=== PATIENT | male | born 1985 | race Caucasian/White ===

== ENCOUNTER 2021-07-23 09:07 | Observation (INO) | payer BC, OTHER ==
[2021-07-23 09:38] LABS: #Eosinphils 0.1 thou/uL (0.0-0.7); #Lymphocytes 1.8 thou/uL (1.20-3.40); #Monocytes 0.8 thou/uL (0.11-0.59); #Neutrophils 5.9 thou/uL (1.40-6.50); %Basophils 0.4 % (0.0-1.0); %Eosinophils 1.5 % (0.0-10.0); %Lymphocytes 21.2 % (21.0-51.0); %Monocytes 9.4 % (0.0-10.0); %Neutrophils 67.5 % (42.0-75.0); Hemoglobin 18.3 g/dL (14.0-18.0); Mean Corpuscular HGB CONC 33.1 g/dL (32.0-36.0); Mean Corpuscular Hemoglobin 31.2 pg (27.0-31.0); Mean Corpuscular Volume 94.2 fL (78.0-98.0); Mean Platelet Volume 8.6 fL (7.4-10.4); Platelet Count 217 thou/uL (130-400); RBC Distribution Width 12.3 % (11.5-14.5); Red Blood Cell (RBC) Count 5.87 mill/uL (4.70-6.10); White Blood Cell (WBC) Count 8.7 thou/uL (4.8-10.8)
[2021-07-23] MEDS ORDERED: Iopamidol-370 76% 500 ML 1 ML ONE (09:56)
[2021-07-23 09:58] LABS: ALT (SGPT) 67 U/L (8-55); AST (SGOT) 33 U/L (5-34); Albumin 4.5 g/dL (3.5-5.0); Alkaline Phosphatase 77 U/L (40-110); Anion Gap 15 mmol/L (10-20); BUN (Urea Nitrogen) 13 mg/dL (8.9-20.6); Bilirubin, Total 1.1 mg/dL (0.2-1.2); Calc. Creatinine Clearance 0 mL/min (70-130); Carbon Dioxide 24 mmol/L (22-29); Chloride 101 mmol/L (98-107); Globulin 3.9 g/dL (2.4-3.5); Glucose 301 mg/dL (70-105); Lipase 20 U/L (8-78); Potassium 3.9 mmol/L (3.5-5.1); Protein, Total 8.4 g/dL (6.0-8.3); Sodium 136 mmol/L (136-145)
[2021-07-23] MEDS ORDERED: Dextrose 5% in Water 1,000 ML IV PRN (11:38)
[2021-07-23] MEDS ORDERED: Acetaminophen 325 MG TAB PO PRN (11:38)
[2021-07-23] MEDS ORDERED: Acetaminophen 650 MG Suppository PR PRN (11:38)
[2021-07-23] MEDS ORDERED: Calcium Carbonate 500 MG ChewTAB PO PRN (11:38)
[2021-07-23] MEDS ORDERED: Dextrose 50% Abboject 50 ML SYRINGE SLOW IVP PRN (11:38)
[2021-07-23] MEDS ORDERED: Ondansetron ODT 4 MG TAB PO PRN (11:38)
[2021-07-23] MEDS ORDERED: HumaLOG 300 UNITS/3 ML VIAL SC PRN ×2 (11:38)
[2021-07-23] MEDS ORDERED: Ondansetron PF 4 MG/2 ML Vial IVP PRN (11:38)
[2021-07-23] MEDS ORDERED: Aspirin Chewable 81 MG TAB ONE (11:59)
[2021-07-23 12:21] LABS: Cardiac Risk 6.8 (Less than 4.5)
[2021-07-23 12:27] LABS: Thyroid Stimulating Hormone 1.2731 uIU/mL (0.35-4.94)
[2021-07-23 12:28] LABS: HBSAg Index 0.23 S/CO (0-0.99); Hep B Surf Ag Non-Reactive S/CO (NonReactive)
[2021-07-23 12:29] LABS: Hep C IgG Ab Non-Reactive (NonReactive); Hep C Index 0.06 S/CO (0-0.79)
[2021-07-23 12:30] LABS: HBCM Index 0.16 S/CO (0-0.79); Hepatitis B Core IgM Abs Non-Reactive (NonReactive)
[2021-07-23 12:48] LABS: HBSAB Concentration 32.61 mIU/mL; Hep B Surf AB Reactive (NonReactive)
[2021-07-23 12:50] LABS: Troponin I Less than 0.010 ng/mL (< 0.028)
[2021-07-23 16:16] LABS: Ferritin 738.76 ng/mL (22-322)
[2021-07-23 17:42] LABS: Iron 54 ug/dL (65-175); Iron Binding Capacity, Total 331 mcg/dL (261-462)
[2021-07-23 20:06] VITALS: BMI 41.4
[2021-07-23] MEDS ORDERED: Insulin Glargine 30 UNITS/0.3 ML VIAL SC SCH (21:00)
[2021-07-24 04:45] LABS: #Eosinphils 0.2 thou/uL (0.0-0.7); #Lymphocytes 2.4 thou/uL (1.20-3.40); %Basophils 0.3 % (0.0-1.0); %Eosinophils 2.4 % (0.0-10.0); %Lymphocytes 27.5 % (21.0-51.0); %Monocytes 11.4 % (0.0-10.0); %Neutrophils 58.3 % (42.0-75.0); Hemoglobin 16.8 g/dL (14.0-18.0); Mean Corpuscular Hemoglobin 31.3 pg (27.0-31.0); Mean Platelet Volume 8.3 fL (7.4-10.4); Platelet Count 205 thou/uL (130-400); RBC Distribution Width 12.2 % (11.5-14.5); Red Blood Cell (RBC) Count 5.37 mill/uL (4.70-6.10); White Blood Cell (WBC) Count 8.5 thou/uL (4.8-10.8)
[2021-07-24 05:20] LABS: Anion Gap 11 mmol/L (10-20); BUN (Urea Nitrogen) 9 mg/dL (8.9-20.6); Calc. Creatinine Clearance 244 mL/min (70-130); Calcium 8.6 mg/dL (7.8-10.44); Carbon Dioxide 24 mmol/L (22-29); Chloride 105 mmol/L (98-107); Glucose 195 mg/dL (70-105); Potassium 3.7 mmol/L (3.5-5.1); Sodium 136 mmol/L (136-145)
[2021-07-24] MEDS ORDERED: Lisinopril 20 MG TAB PO SCH (11:15)
[2021-07-24 15:42] VITALS: BP 139/80; TEMP 98.2
[2021-07-24] MEDS ORDERED: Insulin Glargine 30 UNITS/0.3 ML VIAL SC SCH (21:00)
[2021-07-24] MEDS ORDERED: Rosuvastatin 20 MG TAB PO SCH (21:00)
[2021-07-25] MEDS ORDERED: Lisinopril 20 MG TAB PO SCH (09:00)
== END 2021-07-24 15:48 | disposition home or self-care (01) ==
LOC: ERS 09:07 → ERHOLD 11:13 → 2SW 16:31
PROVIDERS: ADMIT Emergency Medicine; ATTEND Emergency Medicine
DX: R07.89 Other chest pain (principal); R06.00 Dyspnea, unspecified; E11.65 Type 2 diabetes mellitus with hyperglycemia; I10 Essential (primary) hypertension; G47.33 Obstructive sleep apnea (adult) (pediatric); D75.1 Secondary polycythemia; E78.5 Hyperlipidemia, unspecified; K76.0 Fatty (change of) liver, not elsewhere classified; I34.0 Nonrheumatic mitral (valve) insufficiency; Z20.822 Contact with and (suspected) exposure to COVID-19
CPT/HCPCS: 36415; 36416; 71045; 71275; 80048; 80053; 80061; 82728; 83036; 83540; 83550; 83690; 84443; 84484; 85025; 85379; 86705; 86706; 86803; 87340; 93005; 93017; 93306; G0378; J1815; Q9967; U0003; U0005